=== PATIENT | female | born 1970 | race Caucasian/White ===

== ENCOUNTER → 2016-11-11 | Outpatient (CLI) | payer BC | LOC: FIMAGING 08:17 | DX: Z12.31 Encounter for screening mammogram for malignant neoplasm of breast (principal); Z80.3 Family history of malignant neoplasm of breast | CPT/HCPCS: G0202 ==

== ENCOUNTER → 2017-11-14 | Outpatient (CLI) | payer OTHER | LOC: FIMAGING 15:14 | PROVIDERS: ATTEND Nurse Practitioner Adult Health | DX: Z12.31 Encounter for screening mammogram for malignant neoplasm of breast (principal) ==

== ENCOUNTER → 2018-02-23 | Outpatient (CLI) | payer OTHER ==
[~2018-02-23] MED LIST: IOPAMIDOL (ISOVUE-300) 100 ML BTL ONE
== END ==
LOC: FIMAGING 09:50
PROVIDERS: ATTEND Obstetrics & Gynecology
DX: R31.0 Gross hematuria (principal)
CPT/HCPCS: Q9967

== ENCOUNTER → 2018-12-19 | Outpatient (CLI) | payer OTHER | LOC: FIMAGING 09:16 | PROVIDERS: ATTEND Nurse Practitioner Adult Health | DX: Z12.31 Encounter for screening mammogram for malignant neoplasm of breast (principal) ==